=== PATIENT | female | born 2000 | race Caucasian/White ===

== ENCOUNTER 2018-04-01 13:15 | Emergency (ER) | payer MEDICAID ==
[~2018-04-01] VITALS: Ht 157.5 cm; Wt 70.3 kg
[2018-04-01 13:26] VITALS: Ht 157.5 cm; Wt 70.3 kg
[2018-04-01 15:28] VITALS: BP 132/68
[2018-04-01 15:38] LABS: UA SPECIFIC GRAVITY 1.025 (1.005-1.035); microscopic required? YES; urine erythrocyte NEGATIVE (NEGATIVE)
== END 2018-04-01 15:28 | disposition left against medical advice (07) ==
LOC: ED 13:15
PROVIDERS: Emergency Medicine
DX: O26.891 Other specified pregnancy related conditions, first trimester (principal); R10.31 Right lower quadrant pain; R11.2 Nausea with vomiting, unspecified; Z3A.08 8 weeks gestation of pregnancy; Z98.890 Other specified postprocedural states
CPT/HCPCS: 87491; 87591; J2765; J7030